=== PATIENT | female | born 1980 | race Caucasian/White ===

== ENCOUNTER 2018-01-08 22:28 | Emergency (ER) | payer OTHER ==
[~2018-01-08] VITALS: Ht 167.6 cm; Wt 99.0 kg
[~2018-01-08 22:28] MED LIST: LORAZEPAM
[2018-01-08 22:40] VITALS: BP 117/59
== END 2018-01-09 04:55 | disposition left against medical advice (07) ==
LOC: ER 22:38
DX: Z53.21 Procedure and treatment not carried out due to patient leaving prior to being seen by health care provider (principal); R20.0 Anesthesia of skin; R45.1 Restlessness and agitation
CPT/HCPCS: 82962